=== PATIENT | male | born 1935 | race Caucasian/White ===

== ENCOUNTER 2017-06-04 10:53 | Emergency (ER) | payer OTHER, MEDICARE ==
[~2017-06-04] VITALS: Ht 182.9 cm; Wt 88.5 kg
[~2017-06-04 10:53] MED LIST: ALAWAY10 ML; ASPIRIN325 PO; ATIVAN0.5 MG PO; BISACODYL SUPP10 MG RECTAL; CERAVE; CHOLESTYRAMINE P4 GM; CLARITIN10 MG PO; COLACE100 MG PO; DONEPEZIL HCL 55 M1 PO; EUCERIN CREME57 GM TOP; FLONASE 0.05%50 MCG NASAL; FOLIC ACID 40400 MCG PO; HUMIRA20 MG/0.4; HYDROCHLOROTHIA25 M1 PO; HYDROCODONE-AP1 EAC6 PO; KETOCONAZOLE60 GM TOP; METHOTREXATE 22.5 M1 PO; METHOTREXATE 22.5 MG PO; MOBIC7.5 MG PO; NORCO 5-325 TA1 EACH PO; NORVASC 5 MG TAB5 MG PO; NORVASC5 MG PO; OMEPRAZOLE 20 M20 MG PO; OXISTAT60 GM; PRESERVISION A1 EAC2; PRESERVISION T1 EACH PO; PRILOSEC 10MG C10 MG PO; PROBIOTIC1 EAC1 PO; SENOKOT-S1 TA1 PO; TRAMADOL 50 MG50 MG PO; TRIAMCINOLONE A80 G2 TOP; XARELTO10 MG PO; [UNRECOGNIZED DRUG - OTHER]; [UNRECOGNIZED DRUG - OTHER]
[2017-06-04 11:57] VITALS: BP 144/67
[2017-06-04] MEDS ORDERED: LIDOCAINE1 EACH TRANSDERM (13:50)
[2017-06-04] MEDS ORDERED: ULTRAM 50MG TAB50 MG PO (13:51)
== END 2017-06-04 15:14 | disposition home or self-care (01) ==
LOC: ER 10:53
DX: S22.20XA Unspecified fracture of sternum, initial encounter for closed fracture (principal); I10 Essential (primary) hypertension; F41.9 Anxiety disorder, unspecified; Z88.0 Allergy status to penicillin; W18.30XA Fall on same level, unspecified, initial encounter; Y93.89 Activity, other specified; Y92.89 Other specified places as the place of occurrence of the external cause; Y99.8 Other external cause status